=== PATIENT | female | born 1965 | race Caucasian/White ===

== ENCOUNTER 2017-04-01 21:14 | Emergency (ER) | payer BC ==
[2017-04-01] MEDS ORDERED: AMOXICILLIN 500 MG CAP PO STA (21:44)
[2017-04-01] MEDS ORDERED: HYDROcodone/APAP 5-325MG 1 EACH TAB PO STA (21:44)
[2017-04-01] MEDS ORDERED: LIDOCAINE 1%-EPI 1:100,000 20 ML VIAL SQ STA (21:56)
--- NOTE | 2017-04-01 21:59 | ED ---
General Adult HPI - General Chief complaint: Fall Stated complaint: Fall Time Seen by Provider: 04/01/17 21:38 Source: patient, RN notes reviewed, old records reviewed Mode of arrival: ambulatory Limitations: no limitations - History of Present Illness Initial comments: This is a 51-year-old female to the ER for evaluation. Patient is presenting to ER for evaluation regarding status post fall. Patient fell while carrying wood, patient has pain just to her face, chin. Also has a bruise to left hand. Patient's complaining of facial pain. Tooth pain and decreased ability to open her mouth. Patient states her tetanus is up-to-date. Denies any other injuries - Related Data Home Medications Medication Instructions Recorded Confirmed [id number]-Ltkd [id number] 1 - 2 tab PO Q4-6H PRN 04/01/17 04/01/17 [Excedrin] Diazepam [Valium] 1.25 - 5 mg PO DAILY PRN 04/01/17 04/01/17 Allergies Allergy/AdvReac Type Severity Reaction Status Date / Time allantoin [From Blistex] Allergy Unknown Verified 04/01/17 21:36 aloe vera [From Blistex] Allergy Unknown Verified 04/01/17 21:36 camphor [From Blistex] Allergy Unknown Verified 04/01/17 21:36 chamomile flower Allergy Unknown Verified 04/01/17 21:36 [From Blistex] dimethicone [From Blistex] Allergy Unknown Verified 04/01/17 21:36 herbal complex no. 57 Allergy Unknown Verified 04/01/17 21:36 [From Blistex] homosalate [From Blistex] Allergy Unknown Verified 04/01/17 21:36 menthol [From Blistex] Allergy Unknown Verified 04/01/17 21:36 meradimate [From Blistex] Allergy Unknown Verified 04/01/17 21:36 octinoxate [From Blistex] Allergy Unknown Verified 04/01/17 21:36 octyl salicylate Allergy Unknown Verified 04/01/17 21:36 [From Blistex] oxybenzone [From Blistex] Allergy Unknown Verified 04/01/17 21:36 padimate O [From Blistex] Allergy Unknown Verified 04/01/17 21:36 petrolatum,hydrophilic Allergy Unknown Verified 04/01/17 21:36 [From Blistex] phenol [From Blistex] Allergy Unknown Verified 04/01/17 21:36 morphine AdvReac Nausea & Verified 04/01/17 21:38 Vomiting & Diarrhea Review of Systems ROS Statement: Those systems with pertinent positive or pertinent negative responses have been documented in the HPI. ROS Other: All systems not noted in ROS Statement are negative. Past Medical History Additional Past Medical History / Comment(s): Barrets esophagus. TMJ. History of Any Multi-Drug Resistant Organisms: None Reported Past Surgical History: Hysterectomy, Tubal Ligation Additional Past Surgical History / Comment(s): fundoplication. Past Psychological History: Anxiety, Depression Smoking Status: Never smoker Past Alcohol Use History: None Reported Past Drug Use History: None Reported General Exam Limitations: no limitations General appearance: alert, in no apparent distress Head exam: Present: normocephalic, normal inspection. Absent: atraumatic ( patient has chin and lip laceration 4 cm) Eye exam: Present: normal appearance, PERRL, EOMI. Absent: scleral icterus, conjunctival injection, periorbital swelling ENT exam: Present: normal exam, mucous membranes moist Neck exam: Present: normal inspection. Absent: tenderness, meningismus, lymphadenopathy Respiratory exam: Present: normal lung sounds bilaterally. Absent: respiratory distress, wheezes, rales, rhonchi, stridor Cardiovascular Exam: Present: regular rate, normal rhythm, normal heart sounds. Absent: systolic murmur, diastolic murmur, rubs, gallop, clicks GI/Abdominal exam: Present: soft, normal bowel sounds. Absent: distended, tenderness, guarding, rebound, rigid Extremities exam: Present: normal inspection, full ROM, normal capillary refill. Absent: tenderness, pedal edema, joint swelling, calf tenderness Back exam: Present: normal inspection Neurological exam: Present: alert, oriented X3, CN II-XII intact Psychiatric exam: Present: normal affect, normal mood Skin exam: Present: warm, dry, intact, normal color. Absent: rash Course Vital Signs 04/01/17 21:20 Temperature 99.2 F Pulse Rate 84 Respiratory 16 Rate Blood Pressure 139/80 O2 Sat by Pulse 98 Oximetry Procedures - Laceration Laceration #1 Consent Obtained: verbal consent Time Out Performed: Yes Indication: laceration Site: face, lip Size (cm): 4 Description: linear Depth: simple, single layer Anesthetic Used: lidocaine 1% Pre-repair: wound explored, irrigated extensively Type of Sutures: nylon Size of Sutures: 5-0 Technique: simple, interrupted Patient Tolerated Procedure: well Medical Decision Making - Medical Decision Making 51 female to ER status post fall, chin laceration, laceration is repaired. Patient placed on antibiotics, tetanus is up-to-date CT facial bones is negative for fracture, patient denies headache or neck pain - Radiology Data Radiology results: report reviewed (CT facial bones is negative for fracture), image reviewed Disposition Clinical Impression: Fall, Facial laceration Disposition: HOME SELF-CARE Condition: Good Instructions: Facial Laceration (ED) Referrals: Meir Allan MD [Primary Care Provider] - 1-2 days
--- NOTE | 2017-04-01 22:23 | XR ---
EXAMINATION TYPE: XR hand complete LT DATE OF EXAM: 04/01/2017 COMPARISON: NONE HISTORY: Pain TECHNIQUE: 3 views FINDINGS: I see no fracture nor dislocation. There are no erosions. Joint spaces are fairly normal. IMPRESSION: Negative left hand exam. No fracture seen. Second metacarpal appears normal.
--- NOTE | 2017-04-01 22:31 | CT ---
EXAMINATION TYPE: CT facial bones wo con DATE OF EXAM: 04/01/2017 COMPARISON: NONE HISTORY: Laceration on mandible after fall today. CT DLP: 703.7 mGycm Automated exposure control for dose reduction was used. TECHNIQUE: CT scan of the sinuses is performed without contrast, axial images are obtained, coronal r eformatted images are also reviewed. FINDINGS: The orbital margins are intact. There is no evidence of a blowout fracture. There is normal aeration of the paranasal sinuses. There is bilateral patency of the ostiomeatal complex. Nasal turb inates appear normal. The maxilla is intact. The zygomatic arches appear normal. Nasal bone appears i ntact. There is no evidence of an orbital mass. The mandibular ring is intact. There is no evidence o f mandible fracture. There is some soft tissue swelling on the anterior aspect of the left hemimandib le. IMPRESSION: No fracture. Mild soft tissue swelling adjacent to the anterior mandible on the left side .
[2017-04-01 23:45] VITALS: BP 142/81; PULSE 72; RESP 17; TEMP 98.9
== END 2017-04-01 23:45 | disposition home or self-care (01) ==
LOC: EC 21:14
DX: S01.81XA Laceration without foreign body of other part of head, initial encounter (principal); S01.511A Laceration without foreign body of lip, initial encounter; Z88.8 Allergy status to other drugs, medicaments and biological substances; Z88.6 Allergy status to analgesic agent; W18.31XA Fall on same level due to stepping on an object, initial encounter; Y92.009 Unspecified place in unspecified non-institutional (private) residence as the place of occurrence of the external cause
CPT/HCPCS: 12013; 70486; 99284

== ENCOUNTER 2017-06-19 11:45 | Emergency (ER) | payer BC ==
[2017-06-19 11:55] VITALS: BP 121/75; PULSE 69; RESP 18; TEMP 97
[2017-06-19] MEDS ORDERED: SODIUM CHLORIDE 0.9% 1,000 ML IV STA (12:14)
[2017-06-19] MEDS ORDERED: ONDANSETRON 4 MG/2 ML VIAL IVP STA (12:14)
--- NOTE | 2017-06-19 12:26 | ED ---
General Adult HPI - General Chief complaint: Upper Respiratory Infection Stated complaint: Light headed & dizziness Time Seen by Provider: 06/19/17 12:04 Source: patient, RN notes reviewed Mode of arrival: ambulatory Limitations: no limitations - History of Present Illness Initial comments: 52-year-old female presents to the emergency Department today for a chief complaint of cough. Patient states she has had a cough for 4 days. Patient states her chest also feels "wheezy". Patient denies shortness of breath or chest pain. Patient states the cough is productive and she is coughing up mucus every now and then. Patient denies a history of asthma, COPD, or smoking. Patient also complains of congestion. Patient states she has felt congested for the past 4 days as well. She states she feels she has pressure in her right ear. Denies pain in the left ear. Patient denies pain in the throat. Patient states she has been nauseous on and off. She is currently nauseous on exam. She had a Aleah fundoplication performed about a year ago so she states she cannot vomit. Patient states she is worried about having the flu. She states she has chills on and off but does not have a thermometer at home to check her temperature. Patient denies body aches. Patient is also concerned she is dehydrated and requests to have IV hydration. Patient states she just doesn't feel like eating or drinking much. Patient states she went to an emergency department in [place] 2 weeks ago because she felt sick there. She states she had IV fluids and tested negative for the flu at that time. Patient would like to be tested for the flu again. - Related Data Home Medications Medication Instructions Recorded Confirmed [id number] [id number] 1 - 2 tab PO Q4-6H PRN 04/01/17 04/01/17 [Excedrin] Diazepam [Valium] 1.25 - 5 mg PO DAILY PRN 04/01/17 04/01/17 Previous Rx's Medication Instructions Recorded Amoxicillin 500 mg PO Q8H #30 capsule 04/01/17 Allergies Allergy/AdvReac Type Severity Reaction Status Date / Time allantoin [From Blistex] Allergy Unknown Verified 06/19/17 11:55 aloe vera [From Blistex] Allergy Unknown Verified 06/19/17 11:55 camphor [From Blistex] Allergy Unknown Verified 06/19/17 11:55 chamomile flower Allergy Unknown Verified 06/19/17 11:55 [From Blistex] dimethicone [From Blistex] Allergy Unknown Verified 06/19/17 11:55 herbal complex no. 57 Allergy Unknown Verified 06/19/17 11:55 [From Blistex] homosalate [From Blistex] Allergy Unknown Verified 06/19/17 11:55 menthol [From Blistex] Allergy Unknown Verified 06/19/17 11:55 meradimate [From Blistex] Allergy Unknown Verified 06/19/17 11:55 octinoxate [From Blistex] Allergy Unknown Verified 06/19/17 11:55 octyl salicylate Allergy Unknown Verified 06/19/17 11:55 [From Blistex] oxybenzone [From Blistex] Allergy Unknown Verified 06/19/17 11:55 padimate O [From Blistex] Allergy Unknown Verified 06/19/17 11:55 petrolatum,hydrophilic Allergy Unknown Verified 06/19/17 11:55 [From Blistex] phenol [From Blistex] Allergy Unknown Verified 06/19/17 11:55 morphine AdvReac Nausea & Verified 06/19/17 11:55 Vomiting & Diarrhea Review of Systems ROS Statement: Those systems with pertinent positive or pertinent negative responses have been documented in the HPI. ROS Other: All systems not noted in ROS Statement are negative. Past Medical History Additional Past Medical History / Comment(s): Barrets esophagus. TMJ. History of Any Multi-Drug Resistant Organisms: None Reported Past Surgical History: Hysterectomy, Tubal Ligation Additional Past Surgical History / Comment(s): fundoplication. Past Psychological History: Anxiety, Depression Smoking Status: Never smoker Past Alcohol Use History: None Reported Past Drug Use History: None Reported General Exam Limitations: no limitations Head exam: Present: atraumatic, normocephalic, normal inspection Eye exam: Present: normal appearance, PERRL, EOMI. Absent: scleral icterus, conjunctival injection, periorbital swelling ENT exam: Present: normal exam, normal oropharynx (None erythematous oropharynx. No exudates noted on tonsils.), mucous membranes moist, TM's normal bilaterally (None erythematous TMs bilaterally) Neck exam: Present: normal inspection, full ROM. Absent: tenderness, meningismus, lymphadenopathy Respiratory exam: Present: normal lung sounds bilaterally. Absent: respiratory distress, wheezes, rales, rhonchi, stridor Cardiovascular Exam: Present: regular rate, normal rhythm, normal heart sounds. Absent: systolic murmur, diastolic murmur, rubs, gallop, clicks GI/Abdominal exam: Present: soft, normal bowel sounds. Absent: distended, tenderness, guarding, rebound, rigid Course Vital Signs 06/19/17 11:53 Temperature 97 F L Pulse Rate 69 Respiratory 18 Rate Blood Pressure 121/75 O2 Sat by Pulse 98 Oximetry Medical Decision Making - Medical Decision Making 52-year-old female presents to the emergency department for the chief complaints of cough and congestion. Patient also complains of pressure in the right ear. Patient states she has not checked her temperature. Patient is concerned about the flu and dehydration. She states she would like IV fluids. She was in [facility] emergency department 2 weeks ago for migraine and not feeling well and was given IV fluids and tested negative for the flu. Patient denies sore throat, shortness of breath, chest pain, abdominal pain, vomiting, or diarrhea. Patient does have nausea on and off for which she is taking Zofran prescribed from [facility] emergency department. Patient states her cough is productive. Chest x-ray demonstrates that the lungs are clear and pleural spaces are clear. Normal chest on x-ray. Because of patient's complaints of not eating or drinking much and her worries of dehydration and lab work was ordered. CBC and CMP were WNL. White count is 4. Influenza B is positive. Patient was not given Tamiflu as she has had symptoms for 4 days and already has nausea. Tamiflu can cause GI symptoms such as nausea. Patient felt much better after getting a liter of fluid in the emergency department. Patient was told to get plenty of rest at home and take [id number] Tylenol and cold medicine. Patient will follow up with primary care for provider in one to 2 days. She will return to the emergency Department if she notices worsening symptoms, shortness of breath, or difficulty breathing. - Lab Data Result diagrams: 06/19/17 12:30 06/19/17 12:30 Lab Results 06/19/17 06/19/17 06/19/17 Range/Units 12:30 12:30 12:30 WBC 4.0 (3.8-10.6) k/uL RBC 4.71 (3.80-5.40) m/uL Hgb 13.9 (11.4-16.0) gm/dL Hct 42.4 (34.0-46.0) % MCV 90.1 (80.0-100.0) fL MCH 29.5 (25.0-35.0) pg MCHC 32.7 (31.0-37.0) g/dL RDW 12.5 (11.5-15.5) % Plt Count 240 (150-450) k/uL Neutrophils % 59 % Lymphocytes % 32 % Monocytes % 5 % Eosinophils % 1 % Basophils % 1 % Neutrophils # 2.4 (1.3-7.7) k/uL Lymphocytes # 1.3 (1.0-4.8) k/uL Monocytes # 0.2 (0-1.0) k/uL Eosinophils # 0.0 (0-0.7) k/uL Basophils # 0.0 (0-0.2) k/uL Sodium 142 (137-145) mmol/L Potassium 4.0 (3.5-5.1) mmol/L Chloride 103 (98-107) mmol/L Carbon Dioxide 24 (22-30) mmol/L Anion Gap 15 mmol/L BUN 12 (7-17) mg/dL Creatinine 0.80 (0.52-1.04) mg/dL Est GFR (CKD-EPI)AfAm >90 (>60 ml/min/1.73 sqM) Est GFR (CKD-EPI)NonAf 85 (>60 ml/min/1.73 sqM) Glucose 100 H (74-99) mg/dL Calcium 9.5 (8.4-10.2) mg/dL Total Bilirubin 0.4 (0.2-1.3) mg/dL AST 38 H (14-36) U/L ALT 80 H (9-52) U/L Alkaline Phosphatase 79 (38-126) U/L Total Protein 7.2 (6.3-8.2) g/dL Albumin 4.1 (3.5-5.0) g/dL Influenza Type A RNA Not Detected (Not Detectd) Influenza Type B (PCR) Detected H (Not Detectd) Disposition Clinical Impression: Influenza B Disposition: HOME SELF-CARE Condition: Good Instructions: Influenza (ED) Additional Instructions: Please take Tylenol and ibuprofen for fever reduction if you develop a fever. Please take [id number] cold and flu medicine for symptomatic relief. Please follow-up with primary care provider in one to 2 days. Please return to the emergency department if you have shortness of breath or symptoms worsen. Referrals: Meir Allan MD [Primary Care Provider] - 1-2 days Time of Disposition: 13:12
[2017-06-19 12:50] LABS: Basophils % (A) 1 %; Eosinophils % (A) 1 %; HCT 42.4 % (34.0-46.0); HGB 13.9 gm/dL (11.4-16.0); Lymphocytes # (A) 1.3 k/uL (1.0-4.8); Lymphocytes % (A) 32 %; MCH 29.5 pg (25.0-35.0); MCHC 32.7 g/dL (31.0-37.0); MCV 90.1 fL (80.0-100.0); Mean Platelet Volume 6.9; Monocytes # (A) 0.2 k/uL (0-1.0); Monocytes % (A) 5 %; Neutrophils # (A) 2.4 k/uL (1.3-7.7); Neutrophils % (A) 59 %; Platelet Count 240 k/uL (150-450); RBC 4.71 m/uL (3.80-5.40); RDW 12.5 % (11.5-15.5)
--- NOTE | 2017-06-19 12:58 | XR ---
EXAMINATION TYPE: XR chest 2V DATE OF EXAM ORDERED: 06/19/2017 HISTORY: Cough and congestion. REFERENCE: None. FINDINGS: The lungs are clear. Pleural spaces are clear. Heart size is normal. IMPRESSION: NORMAL CHEST.
[2017-06-19 13:01] LABS: ALT 80 U/L (9-52); AST 38 U/L (14-36); Albumin 4.1 g/dL (3.5-5.0); Alkaline Phosphatase 79 U/L (38-126); Anion Gap 15 mmol/L; Blood Urea Nitrogen 12 mg/dL (7-17); Calcium 9.5 mg/dL (8.4-10.2); Carbon Dioxide 24 mmol/L (22-30); Chloride 103 mmol/L (98-107); Glucose 100 mg/dL (74-99); Sodium 142 mmol/L (137-145); Total Bilirubin 0.4 mg/dL (0.2-1.3); Total Protein 7.2 g/dL (6.3-8.2)
[2017-06-19] MEDS ORDERED: IBUPROFEN 600 MG TAB PO STA (13:22)
== END 2017-06-19 13:57 | disposition home or self-care (01) ==
LOC: EC 11:45
DX: J10.1 Influenza due to other identified influenza virus with other respiratory manifestations (principal); Z88.8 Allergy status to other drugs, medicaments and biological substances; Z88.5 Allergy status to narcotic agent
CPT/HCPCS: 99284; 96374; 36415; 80053; 85025; 87502; 71046; J2405